=== PATIENT | female | born 1990 | race African-American/Black ===

== ENCOUNTER → 2024-12-31 | Day surgery (SDC) | payer OTHER ==
[2024-12-31 11:34] LABS: ABSOLUTE IMMATURE GRANULOCYTES 0.01 x10^3/uL (0.0-0.031); BASOPHILS # 0.03 x10^3/uL (0.01-0.08); EOSINOPHIL % 5.3 % (0.7-5.8); EOSINOPHILS # 0.29 x10^3/uL (0.04-0.36); MCHC 29.4 g/dl (32.2-35.5); MEAN CELL VOLUME 69.6 fl (79.4-94.8); MEAN PLT VOLUME 10.5 fl (9.4-12.3); MONOCYTE # 0.38 x10^3/uL (0.24-0.86); MONOCYTE % 6.9 % (4.7-12.5); RDW 19.7 % (12.1-16.8)
[2025-01-01 15:06] LABS: LUTEINIZING HORMONE 73.3 mIU/mL (.)
== END | disposition home or self-care (01) ==
LOC: JRADIR 10:11
PROVIDERS: ATTEND Obstetrics & Gynecology
PROC: BU18YZZ Fluoroscopy of Uterus and Fallopian Tubes using Other Contrast (ICD-10-PCS; principal; 2024-12-31)
DX: N97.9 Female infertility, unspecified (principal)
CPT/HCPCS: 36415; 58340; 74740-TC-FY; 76000-TC-FY; 82397; 82670; 83001; 83002; 84703; 85025